=== PATIENT | female | born 1965 | race Caucasian/White ===

== ENCOUNTER 2023-05-26 14:57 | Outpatient (CLI) | payer BC | END 2023-05-26 14:58 | disposition EMS.NT | LOC: EMS 14:57 | DX: S61.451A Open bite of right hand, initial encounter (principal); S51.851A Open bite of right forearm, initial encounter; W54.0XXA Bitten by dog, initial encounter; Y93.K9 Activity, other involving animal care; Y92.89 Other specified places as the place of occurrence of the external cause; Y99.2 Volunteer activity ==

== ENCOUNTER 2023-05-26 15:11 | Emergency (ER) | payer BC ==
[2023-05-26] MEDS ORDERED: TETANUS/DIPHTHERIA/PERTUSSIS 0.5 ML SYRINGE IM ONE (15:30)
[2023-05-26] MEDS ORDERED: BACITRACIN ZINC OINT 1 PACKET TOP STA (15:31)
[2023-05-26] MEDS ORDERED: HYDROmorphone 1 MG/ML CARPUJECT IM STA (15:31)
[2023-05-26] MEDS ORDERED: AMOX/CLAV 875 MG/125 MG TABLET PO STA (15:31)
[2023-05-26] MEDS ORDERED: lidocaine 1% 20 ML MDV SUBQ ONE (15:32)
--- NOTE | 2023-05-26 15:36 | ED Physician Documentation ---
History of Present Illness - Stated complaint Stated Complaint: BILATERAL ARM DOG BITE - Chief complaint Chief Complaint: Wound - Additonal information Additional information: 57-year-old female who is right-hand dominant presents the emergency department for evaluation of multiple dog bite puncture wounds to her right forearm right hand and left ring finger. She was walking number of dogs at the [employer] when she was bitten. She believes the dogs that bit her were up-to-date with vaccinations. Patient is uncertain of her last tetanus status. She does report that right after being bitten her hand clenched shut and she had numbness but over a little bit of time the numbness has improved as well as the function of the hand. Review of Systems Constitutional: denies: Fever, Chills Cardiac: reports: Reviewed and negative Respiratory: reports: Reviewed and negative GI: reports: Reviewed and negative : reports: Reviewed and negative Skin: reports: Bite / sting PD PAST MEDICAL HISTORY - Present Medications Home Medications: Ambulatory Orders Medication Instructions Recorded Confirmed Amox/Clav 875/125 [Augmentin] 1 each PO Q12H 10 Days #20 tablet 05/26/23 oxyCODONE [Roxicodone] 5 mg PO TID PRN #20 tablet 05/26/23 - Allergies Allergies/Adverse Reactions: Allergies Allergy/AdvReac Type Severity Reaction Status Date / Time No Known Drug Allergies Allergy Verified 05/26/23 15:16 PD ED PE EXPANDED - Extremities Extremities: Right forearm (Approximately 15 puncture wounds to the right forearm and dorsum of the right hand. 2 puncture wounds to the volar aspect of the right palm.), Right hand (Patient appears to have the ability to make a full grasp with her right hand with flexion and extension at all joints against resistance possible. Neurovascularly intact.), Left finger(s) (Dog bite puncture wound to the tip of the left ring finger and fat pad of the left ring finger) Results - Vitals Vitals: Vital Signs - 24 hr 05/26/23 15:16 Temperature 36.7 C Heart Rate 78 Respiratory 20 Rate Blood Pressure 128/69 O2 Saturation 97 Oxygen O2 Source Room air - Rads (name of study) right forearm xr Relevant Findings:: Final report received (Subacute gas overlying the lateral forearm without underlying fracture) right hand xr Relevant Findings:: Final report received (No acute bony abnormality) Procedures - Laceration (location) right palm lac/puncture wound Length in cm: 1.5 Wound type: Curved, Into subcut fat, Into muscle Neurovascular status: Sensory intact, Motor intact Tendon involvement: Tendon intact Anesthesia: Lidocaine 1% Wound preparation: Chlorhexadine, Irrigated copiously NS Skin layer closure: Nylon, Interrupted, Size #-0 - enter number (4), Sutures - enter # (1) Other: Patient tolerated well, No complications, Tetanus booster given PD Medical Decision Making - ED course Complexity details: reviewed results, re-evaluated patient, considered differential, d/w patient, d/w family ED course: 57-year-old female presents to the emergency department for evaluation of dog bite puncture wounds to her right forearm and hand. Occurred just prior to arrival when she was putting a dog back in its cage at the [facility] [employer]. Patient's tetanus was updated today. On exam she has preserved function of the hand and wrist. Normal flexion extension against resistance at all joints. There does not appear to be a tendon injury An x-ray of the right hand and forearm does not reveal any foreign bodies or bony fractures. The gas within the tissue of the forearm secondary to the bite wounds. Lengthy amount of time was spent at the bedside gently washing and thoroughly irrigating all of her puncture wounds. 2 L of saline was used in total. With the exception of a laceration on the volar aspect of her right hand, all puncture wounds were left without suturing. Bacitracin, nonstick Adaptic and then roll gauze was applied. Patient will be started on Augmentin. Limited prescription for oxycodone also sent to the pharmacy. She is advised to follow closely with her PCP for referral to orthopedics or hand surgery for longer-term evaluation and monitoring. I did discuss with patient the concerns that would initiate a return visit to the ER including signs of infection. I am prescribing a short course of short-acting opioid pain medication for this patient. 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 I have discussed that the opioids are for short term therapy only, and will not be refilled from the ED. Departure - Departure Disposition: 01 Home, Self Care Clinical Impression: Puncture wound Dog bite of arm Qualifiers: Encounter type: initial encounter Laterality: right Qualified Code(s): S41.151A - Open bite of right upper arm, initial encounter; W54.0XXA - Bitten by dog, initial encounter Condition: Stable Instructions: ED Wound Puncture General, ED Bite Animal General Prescriptions: Amox/Clav 875/125 [Augmentin] 1 each PO Q12H 10 Days #20 tablet oxyCODONE [Roxicodone] 5 mg PO TID PRN #20 tablet PRN Reason: Pain Comments: Clare you have approximately 20 puncture wounds to your right forearm, right hand and left ring finger. With the exception of one wound on the palm of your right hand these were all thoroughly irrigated cleansed and then simply left open. The suture in your right palm should be removed in 7 to 10 days. Your tetanus was updated today and should be current for the next 7 to 10 years. In general I would like you to change your dressing once or twice daily. Wash thoroughly with an antibiotic soap, pat dry and then apply bacitracin or triple antibiotic ointment to all open wounds. Until these wounds are thoroughly healed do not submerge your hand in dirty water such as hot tubs, pools, baths, oceans or lakes. Dog bite wounds do carry a high risk of infection. Please fill the prescription for the Augmentin and begin taking twice daily for the next 10 days. In general I would like you to take 600 mg of ibuprofen with food 2-3 times a day or alternate with 500 mg Acetaminophen. For more severe pain a limited amount of oxycodone has been sent to the [facility] in [place]. Because of the number of puncture wounds I do feel it is important that you are followed closely by a hand specialist. Please request this referral from your primary care doctor on Monday. Return to the ER if you find you are having worsening symptoms, significant fevers, red streaking milky drainage or worsening pain. I am prescribing a short course of narcotic pain medication for you. These are potentially dangerous and addictive medications that should be used carefully. These medications may constipate you. Take an [id number] stool softener (docusate) twice daily with plenty of water while taking these medications. If you go 24 hours without a bowel movement, take [id number]-oko-[id number] miralax, per package instructions. Do not drink or drive while taking these medications. If you received narcotic or sedating medications while in the emergency department, do not drive for 24 hours. Store this medication in a safe, secure place and out of reach of children. It is a violation of federal law to give or sell this medication to another person or to use in a manner other than prescribed. The ED will not refill narcotic prescriptions, including prescriptions lost or stolen. To dispose of unwanted medications: 1. [facility] at [address] in [place] has a medication drop box. They accept prescription medications (in pill form) Monday through Monday 9:00 a.m. to 5:00 p.m. 2. [facility] accepts prescription medications (in pill form only) for disposal year round. Call for more in formation. 3. Contact the [facility] for the next [facility] sponsored prescription drug collection event. , [phone], or [phone]; Note that many narcotic pain relievers also contain Tylenol/acetaminophen. Please ensure that your total dose of acetaminophen from all sources does not exceed 3 g (3000 mg) per day.
--- NOTE | 2023-05-26 16:07 | XRAY Report ---
PROCEDURE: Forearm RT INDICATIONS: dog bite TECHNIQUE: 2 views of the forearm were acquired. COMPARISON: 2 FINDINGS: Bones: No fractures or dislocations. No suspicious bony lesions. Soft tissues: No suspicious soft tissue calcifications or masses. Subcutaneous gas overlying the lat eral forearm. IMPRESSION: Subcutis gas overlying the lateral forearm, without underlying fracture. Reviewed by: Hieu Gilliland on 05/26/2023 4:06 PM PDT Approved by: Hieu Gilliland on 05/26/2023 4:06 PM PDT Station ID: [id number]
--- NOTE | 2023-05-26 16:08 | XRAY Report ---
PROCEDURE: Hand 3 View RT INDICATIONS: dog bite TECHNIQUE: 3 views of the hand(s) acquired. COMPARISON: None. FINDINGS: Bones: No fractures or dislocations. No suspicious bony lesions. Soft tissues: No suspicious soft tissue calcifications or masses. IMPRESSION: No acute bony abnormality. Reviewed by: Hieu Gilliland on 05/26/2023 4:07 PM PDT Approved by: Hieu Gilliland on 05/26/2023 4:07 PM PDT Station ID: [id number]
[2023-05-26] MEDS ORDERED: oxyCODONE 5 MG TABLET PO STA (16:18)
[2023-05-26 16:26] VITALS: BP 101/67; O2SAT 95
== END 2023-05-26 16:34 | disposition home or self-care (01) ==
LOC: ED 15:11
DX: S51.851A Open bite of right forearm, initial encounter (principal); S61.451A Open bite of right hand, initial encounter; S61.255A Open bite of left ring finger without damage to nail, initial encounter; S61.411A Laceration without foreign body of right hand, initial encounter; W54.0XXA Bitten by dog, initial encounter; Y93.K1 Activity, walking an animal; Y92.89 Other specified places as the place of occurrence of the external cause; Y99.0 Civilian activity done for income or pay
CPT/HCPCS: 12001; 73090; 73130; 90471; 90715; 96372; 99283; A9270; J1170